=== PATIENT | male | born 1990 | race Caucasian/White ===

== ENCOUNTER 2016-10-15 | Emergency (ER) | payer OTHER ==
[2016-10-15] MEDS ORDERED: ONDANSETRON 4 MG ORAL DISINTEGRATING TAB (S0181) As Ordered ONE (01:54)
[2016-10-15] MEDS ORDERED: KETOROLAC 30 MG/ML VIAL (J1885) As Ordered ONE (01:55)
--- NOTE | 2016-10-15 02:53 | EDDOCDS ---
Nurse's Notes [facility] Name: Francisco Arizmendi Age: 26 yrs Sex: Male : 1990 Arrival Date: 10/15/2016 Time: 00:00 Bed I3 / M3 Private MD: Diagnosis: Fall due to ice and snow;Contusion of back wall of thorax;Concussion without loss of consciousness Presentation: 10/15 00:06 Presenting complaint: Patient states: Slipped on ice and fell injuring head and neck. [facility] Adult Sepsis Screening: The patient does not have new or worsening altered mentation. Patient's respiratory rate is less than 22. Systolic blood pressure is greater than 100. Patient has a qSOFA score of 0- Negative Sepsis Screen. Suicide/Homicide risk assessment- the patient denies having any suicidal and/or homicidal ideations and does not present with any other emotional, behavioral or mental health complaints. Status: The patient is an active duty social service technician. Transition of care: patient was not received from another setting of care. 00:06 Acuity: MARY BETH Level 4 [facility] 00:06 Method Of Arrival: Walkin/Carried/Asstd [facility] Triage Assessment: 00:09 General: Appears uncomfortable, Behavior is cooperative. Pain: Location: head and neck [facility] Pain currently is 7 out of 10 on a pain scale. HIV screening NA for this visit Offered previously. Neurological: Level of Consciousness is awake, alert, Oriented to person, place, time, Moves all extremities. Gait is steady, Speech is normal. Respiratory: Airway is patent Respiratory effort is even, unlabored. Derm: Skin is pink, warm & dry. Musculoskeletal: Circulation, motion, and sensation intact. Historical: - Allergies: MMR vaccine; orange juice; apple juice; lactose (bulk); - Home Meds: 1. melatonin 3 mg Oral tab nightly 2. Hydroxyzine 30mg Oral hs - PMHx: Pneumonia; - PSHx: left shoulder surgery; - Social history: Smoking status: Patient uses tobacco products, light tobacco smoker. No barriers to communication noted, The patient speaks fluent Italian. - Family history: Not pertinent. - : The pt / caregiver states he / she is not on anticoagulants. Home medication list is obtained from the patient. - Exposure Risk Screening:: None identified. Screenin:51 Screening information is obtained from the patient. Fall risk: No risks identified. cp1 Assistance ADL's: requires no assistance with activities of daily living. Abuse/DV Screen: The patient / caregiver reports he/she is: not in a situation that causes fear, pain or injury. Nutritional screening: No deficits noted. Advance Directives: Currently, there is no health care proxy. There is no active DNR order. home support is adequate. Vital Signs: 00:09 BP 161 / 91; Pulse 100; Resp 18; Temp 96.4(O); Pulse Ox 99% on R/A; Weight 68.04 kg; mcp Height 5 ft. 8 in. (172.72 cm); Pain 7/10; 02:32 BP 152 / 89 RA Sitting (auto/reg); Pulse 86 MON; Resp 20 S; Temp 97.8(O); Pulse Ox 96% cln on R/A; Pain 4/10; 00:09 Body Mass Index 22.81 (68.04 kg, 172.72 cm) [facility] Vitals: 00:09 Log In Time: October 15, 2016 at 00:00. [facility] ED Course: 00:01 Patient visited by Natacha Obrien. gjb 00:01 Patient moved to Waiting gjb 00:07 Triage Initiated mcp 00:11 Patient visited by Thelma Gonzalez RN. [facility] 00:11 The patient / caregiver is instructed regarding the plan of care and ED course. [facility] 00:11 Oksana cervical collar applied. mcp 00:35 Patient moved to MTA Wait cz 01:37 [facility] Zam[facility] cc[facility] 01:37 Osmany Aguirre DO is Attending Physician. cc10 01:37 Patient moved to I3 / M3 cz 01:38 Patient visited by Jacob Zamora PA-C. cc10 01:38 Patient visited by Jacob Zamora PA-C. cc10 02:35 Patient visited by Kaylene Fernández PCA. cln 02:51 No IV's were initiated during this patient's visit. No procedures done that require cp1 assistance. Administered Medications: 01:59 Drug: ketorolac 60 mg [ketorolac 30 mg/mL (1 mL) injection solution (2 mL)] Route: IM; cz Site: right gluteus; 02:50 Follow up: Response: Pain is decreased cp1 01:59 Drug: Ondansetron ODT 4 mg [ondansetron 4 mg disintegrating tablet (1 tabs)] Route: PO; cz 02:50 Follow up: Response: Nausea is decreased cp1 Order Results: There are currently no results for this order. Outcome: 02:31 Discharge ordered by Provider. cc10 02:51 Discharge Assessment: Patient awake, alert and oriented x 3. No cognitive and/or cp1 functional deficits noted. Patient verbalized understanding of disposition instructions. patient administered narcotics - no. The following High Risk Discharge criteria are identified: None. Condition: stable. Discharge instructions given to patient, Instructed on discharge instructions, follow up and referral plans. medication usage, no driving heavy equipment, Demonstrated understanding of instructions, medications, Pt was receptive of discharge instructions/ teaching. Prescriptions given X 2. No special radiology studies were completed. Property sent home with patient. :Personal belongings accompany Pt. 02:52 Patient left the ED. cp1 Signatures: Thelma Gonzalez RN Jerod Raza mcp, RN RN cz Perkins, Cheryl,HEALTH PLAN MANAGER HEALTH PLAN MANAGER cp1 Jacob Zamora, PETEC PA-Zara cc10 Natacha Obrien Crystal, JUNIOR SOCIAL MEDIA INTERN cln MTDD
--- NOTE | 2016-10-15 02:53 | EDDOCDS ---
Physician Documentation [facility] Name: Francisco Arizmendi Age: 26 yrs Sex: Male : 1990 Arrival Date: 10/15/2016 Time: 00:00 Bed I3 / M3 Private MD: Disposition: 10/15/16 02:31 Discharged to Home/Self Care. Impression: Fall due to ice and snow, Contusion of back wall of thorax, Concussion without loss of consciousness. - Condition is Stable. - Discharge Instructions: Concussion, Adult. - Prescriptions for Naprosyn 500 mg Oral Tablet - take 1 tablet by ORAL route 2 times per day take with food; 30 tablet. Cyclobenzaprine 10 mg Oral Tablet - take 1 tablet by ORAL route 3 times per day As needed; 15 tablet. - Medication Reconciliation, Local Pharmacy Hours form. - Follow up: Emergency Department; When: As needed; Reason: Worsening of conditions. Follow up: Private Physician; When: Call to arrange an appointment; Reason: Wound/Symptom Recheck, Recheck today's complaints, Worsening of conditions, Continuance of care. - Problem is new. - Symptoms have improved. Historical: - Allergies: MMR vaccine; orange juice; apple juice; lactose (bulk); - Home Meds: 1. melatonin 3 mg Oral tab nightly 2. Hydroxyzine 30mg Oral hs - PMHx: Pneumonia; - PSHx: left shoulder surgery; - Social history: Smoking status: Patient uses tobacco products, light tobacco smoker. No barriers to communication noted, The patient speaks fluent Marshallese. - Family history: Not pertinent. - : The pt / caregiver states he / she is not on anticoagulants. Home medication list is obtained from the patient. - Exposure Risk Screening:: None identified. Vital Signs: 10/15 00:09 BP 161 / 91; Pulse 100; Resp 18; Temp 96.4(O); Pulse Ox 99% on R/A; Weight 68.04 kg / mcp 150 lbs; Height 5 ft. 8 in. (172.72 cm); Pain 7/10; 02:32 BP 152 / 89 RA Sitting (auto/reg); Pulse 86 MON; Resp 20 S; Temp 97.8(O); Pulse Ox 96% cln on R/A; Pain 4/10; 00:09 Body Mass Index 22.81 (68.04 kg, 172.72 cm) [facility] MDM: 01:47 ketorolac 60 mg IM once ordered. cc10 01:47 Ondansetron ODT Oral Disintegrating Tablet 4 mg PO once ordered. cc10 01:47 Spine Cervical (XTL To Clear) Ordered. EDMS 01:48 Chest, 2 View (pa\E\lat) Ordered. EDMS Administered Medications: 01:59 Drug: ketorolac 60 mg [ketorolac 30 mg/mL (1 mL) injection solution (2 mL)] Route: IM; cz Site: right gluteus; 02:50 Follow up: Response: Pain is decreased cp1 01:59 Drug: Ondansetron ODT 4 mg [ondansetron 4 mg disintegrating tablet (1 tabs)] Route: PO; cz 02:50 Follow up: Response: Nausea is decreased cp1 Signatures: Dispatcher [employer] EDMS Thelma Gonzalez, RN RN Marianela Groves,HAND STONER HAND STONER cp1 Jacob Zamora, PA-C PA-C cc10 Jerod Lopes RN cz MTDD
--- NOTE | 2016-10-15 08:41 | REP ---
Chest x-ray: Two views. History: Trauma . Comparison study: No comparisons . Findings: The lungs are well inflated and free of infiltrate. The pleural angles are sharp. The heart size is normal. Pulmonary vasculature is not increased. No significant bony abnormality is seen. Impression: Negative chest x-ray. Signed by Alphonse Meadows MD 10/15/2016 08:33 A
--- NOTE | 2016-10-15 09:28 | REP ---
Cross-table lateral view of the cervical spine. Single view obtained. History: Trauma. Findings: A single cross-table lateral view of the cervical spine is presented. Cervical vertebral body heights are preserved on this view and alignment is normal. Disc spaces are maintained. No fracture or malalignment is seen. No soft tissue swelling is seen. CT scanning is the preferred imaging modality for trauma in adults and is more sensitive than plain radiography. Signed by Alphonse Meadows MD 10/15/2016 10:23 A
--- NOTE | 2016-10-17 12:25 | EDDOCDS ---
Physician Documentation [facility] Name: Francisco Arizmendi Age: 26 yrs Sex: Male : 1990 Arrival Date: 10/15/2016 Time: 00:00 Bed I3 / M3 Private MD: Disposition: 10/15/16 02:31 Discharged to Home/Self Care. Impression: Fall due to ice and snow, Contusion of back wall of thorax, Concussion without loss of consciousness. - Condition is Stable. - Discharge Instructions: Concussion, Adult. - Prescriptions for Naprosyn 500 mg Oral Tablet - take 1 tablet by ORAL route 2 times per day take with food; 30 tablet. Cyclobenzaprine 10 mg Oral Tablet - take 1 tablet by ORAL route 3 times per day As needed; 15 tablet. - Medication Reconciliation, Local Pharmacy Hours form. - Follow up: Emergency Department; When: As needed; Reason: Worsening of conditions. Follow up: Private Physician; When: Call to arrange an appointment; Reason: Wound/Symptom Recheck, Recheck today's complaints, Worsening of conditions, Continuance of care. - Problem is new. - Symptoms have improved. Historical: - Allergies: MMR vaccine; orange juice; apple juice; lactose (bulk); - Home Meds: 1. melatonin 3 mg Oral tab nightly 2. Hydroxyzine 30mg Oral hs - PMHx: Pneumonia; - PSHx: left shoulder surgery; - Social history: Smoking status: Patient uses tobacco products, light tobacco smoker. No barriers to communication noted, The patient speaks fluent Cymraes. - Family history: Not pertinent. - : The pt / caregiver states he / she is not on anticoagulants. Home medication list is obtained from the patient. - Exposure Risk Screening:: None identified. Vital Signs: 10/15 00:09 BP 161 / 91; Pulse 100; Resp 18; Temp 96.4(O); Pulse Ox 99% on R/A; Weight 68.04 kg / mcp 150 lbs; Height 5 ft. 8 in. (172.72 cm); Pain 7/10; 02:32 BP 152 / 89 RA Sitting (auto/reg); Pulse 86 MON; Resp 20 S; Temp 97.8(O); Pulse Ox 96% cln on R/A; Pain 4/10; 00:09 Body Mass Index 22.81 (68.04 kg, 172.72 cm) [facility] MDM: 01:47 ketorolac 60 mg IM once ordered. cc10 01:47 Ondansetron ODT Oral Disintegrating Tablet 4 mg PO once ordered. cc10 01:47 Spine Cervical (XTL To Clear) Ordered. EDMS 01:48 Chest, 2 View (pa\E\lat) Ordered. EDMS 02:54 [facility] Payment Agreement was scanned into [employer] and attached to record. [facility] 02:54 Financial registration complete. gjb 08:07 T-Sheet-- Draft Copy was scanned into [employer] and attached to record. se Administered Medications: 01:59 Drug: ketorolac 60 mg [ketorolac 30 mg/mL (1 mL) injection solution (2 mL)] Route: IM; cz Site: right gluteus; 02:50 Follow up: Response: Pain is decreased cp1 01:59 Drug: Ondansetron ODT 4 mg [ondansetron 4 mg disintegrating tablet (1 tabs)] Route: PO; cz 02:50 Follow up: Response: Nausea is decreased cp1 Signatures: Dispatcher [employer] EDAZ Thelma Gonzalez, RN RN Marianela Groves,OPERATIONS ASSOCIATE OPERATIONS ASSOCIATE cp1 Jacob Zamora, MAYELA PAJamie ccNatacha Baron Sarah seh Zecher, Calvin RN cz The chart was reviewed and I authenticate all verbal orders and agree with the evaluation and treatment provided.Attachments: 02:54 [facility] Payment Agreement gjb 08:07 T-Sheet-- Draft Copy [facility] Chart Complete MTDD
--- NOTE | 2016-10-17 12:25 | EDDOCDS ---
Nurse's Notes [facility] Name: Francisco Arizmendi Age: 26 yrs Sex: Male : 1990 Arrival Date: 10/15/2016 Time: 00:00 Bed I3 / M3 Private MD: Diagnosis: Fall due to ice and snow;Contusion of back wall of thorax;Concussion without loss of consciousness Presentation: 10/15 00:06 Presenting complaint: Patient states: Slipped on ice and fell injuring head and neck. [facility] Adult Sepsis Screening: The patient does not have new or worsening altered mentation. Patient's respiratory rate is less than 22. Systolic blood pressure is greater than 100. Patient has a qSOFA score of 0- Negative Sepsis Screen. Suicide/Homicide risk assessment- the patient denies having any suicidal and/or homicidal ideations and does not present with any other emotional, behavioral or mental health complaints. 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 Transition of care: patient was not received from another setting of care. 00:06 Acuity: MARY BETH Level 4 [facility] 00:06 Method Of Arrival: Walkin/Carried/Asstd [facility] Triage Assessment: 00:09 General: Appears uncomfortable, Behavior is cooperative. Pain: Location: head and neck [facility] Pain currently is 7 out of 10 on a pain scale. HIV screening NA for this visit Offered previously. Neurological: Level of Consciousness is awake, alert, Oriented to person, place, time, Moves all extremities. Gait is steady, Speech is normal. Respiratory: Airway is patent Respiratory effort is even, unlabored. Derm: Skin is pink, warm & dry. Musculoskeletal: Circulation, motion, and sensation intact. Historical: - Allergies: MMR vaccine; orange juice; apple juice; lactose (bulk); - Home Meds: 1. melatonin 3 mg Oral tab nightly 2. Hydroxyzine 30mg Oral hs - PMHx: Pneumonia; - PSHx: left shoulder surgery; - Social history: Smoking status: Patient uses tobacco products, light tobacco smoker. No barriers to communication noted, The patient speaks fluent Kyrgyz. - Family history: Not pertinent. - : The pt / caregiver states he / she is not on anticoagulants. Home medication list is obtained from the patient. - Exposure Risk Screening:: None identified. Screenin:51 Screening information is obtained from the patient. Fall risk: No risks identified. cp1 Assistance ADL's: requires no assistance with activities of daily living. Abuse/DV Screen: The patient / caregiver reports he/she is: not in a situation that causes fear, pain or injury. Nutritional screening: No deficits noted. Advance Directives: Currently, there is no health care proxy. There is no active DNR order. home support is adequate. Vital Signs: 00:09 BP 161 / 91; Pulse 100; Resp 18; Temp 96.4(O); Pulse Ox 99% on R/A; Weight 68.04 kg; mcp Height 5 ft. 8 in. (172.72 cm); Pain 7/10; 02:32 BP 152 / 89 RA Sitting (auto/reg); Pulse 86 MON; Resp 20 S; Temp 97.8(O); Pulse Ox 96% cln on R/A; Pain 4/10; 00:09 Body Mass Index 22.81 (68.04 kg, 172.72 cm) [facility] Vitals: 00:09 Log In Time: October 15, 2016 at 00:00. [facility] ED Course: 00:01 Patient visited by Natacha Obrien. gjb 00:01 Patient moved to Waiting gjb 00:07 Triage Initiated mcp 00:11 Patient visited by Thelma Gonzalez RN. [facility] 00:11 The patient / caregiver is instructed regarding the plan of care and ED course. mcp 00:11 Oksana cervical collar applied. mcp 00:35 Patient moved to MTA Wait cz 01:37 Jacob Zamora PA-C is PHCP. cc10 01:37 Osmany Aguirre DO is Attending Physician. cc10 01:37 Patient moved to I3 / M3 cz 01:38 Patient visited by Jacob Zamora PA-C. cc10 01:38 Patient visited by Jacob Zamora PA-C. cc10 02:35 Patient visited by Kaylene Fernández PCA. cln 02:51 No IV's were initiated during this patient's visit. No procedures done that require cp1 assistance. 02:54 [facility] Payment Agreement was scanned into [employer] and attached to record. gjb 08:07 T-Sheet-- Draft Copy was scanned into [employer] and attached to record. seh 08:49 Chest, 2 View (pa\E\lat) Returned. EDMS 09:44 Spine Cervical (XTL To Clear) Returned. EDMS Administered Medications: 01:59 Drug: ketorolac 60 mg [ketorolac 30 mg/mL (1 mL) injection solution (2 mL)] Route: IM; cz Site: right gluteus; 02:50 Follow up: Response: Pain is decreased cp1 01:59 Drug: Ondansetron ODT 4 mg [ondansetron 4 mg disintegrating tablet (1 tabs)] Route: PO; cz 02:50 Follow up: Response: Nausea is decreased cp1 Order Results: Radiology Order: Spine Cervical (XTL To Clear) Test: Spine Cervical (XTL To Clear) REASON FOR EXAMINATION: Trauma; Cross-table lateral view of the cervical spine. Single view obtained.; ; History: Trauma.; ; Findings: A single cross-table lateral view of the cervical spine is presented.; Cervical vertebral body heights are preserved on this view and alignment is; normal. Disc spaces are maintained. No fracture or malalignment is seen. No; soft tissue swelling is seen.; ; CT scanning is the preferred imaging modality for trauma in adults and is more; sensitive than plain radiography.; ; ; Signed by; Alphonse Meadows MD 10/15/2016 10:23 A; Radiology Order: Chest, 2 View (pa\E\lat) Test: Chest, 2 View (pa\E\lat) REASON FOR EXAMINATION: Trauma; Chest x-ray: Two views.; ; History: Trauma .; ; Comparison study: No comparisons .; ; Findings: The lungs are well inflated and free of infiltrate. The pleural; angles are sharp. The heart size is normal. Pulmonary vasculature is not; increased. No significant bony abnormality is seen.; ; Impression:; ; Negative chest x-ray.; ; ; Signed by; Alphonse Meadows MD 10/15/2016 08:33 A; Outcome: 02:31 Discharge ordered by Provider. cc10 02:51 Discharge Assessment: Patient awake, alert and oriented x 3. No cognitive and/or cp1 functional deficits noted. Patient verbalized understanding of disposition instructions. patient administered narcotics - no. The following High Risk Discharge criteria are identified: None. Condition: stable. Discharge instructions given to patient, Instructed on discharge instructions, follow up and referral plans. medication usage, no driving heavy equipment, Demonstrated understanding of instructions, medications, Pt was receptive of discharge instructions/ teaching. Prescriptions given X 2. No special radiology studies were completed. Property sent home with patient. :Personal belongings accompany Pt. 02:52 Patient left the ED. cp1 Signatures: Dispatcher [employer] Thelma Morrissey, RN RN Jerod Gibbons, HAYDEE RN Marianela Bartlett,CERTIFIED SOLID WASTE FACILITY OPERATOR CERTIFIED SOLID WASTE FACILITY OPERATOR cp1 Jacob Zamora, PA-C PA-C cc10 Natacha Obrien Crystal, PCA PCA cln Hoffert, Sarah seh Chart Complete MTDD
--- NOTE | 2016-10-17 12:25 | EDDOCDS ---
Physician Documentation [facility] Name: Francisco Arizmendi Age: 26 yrs Sex: Male : 1990 Arrival Date: 10/15/2016 Time: 00:00 Bed I3 / M3 Private MD: Disposition: 10/15/16 02:31 Discharged to Home/Self Care. Impression: Fall due to ice and snow, Contusion of back wall of thorax, Concussion without loss of consciousness. - Condition is Stable. - Discharge Instructions: Concussion, Adult. - Prescriptions for Naprosyn 500 mg Oral Tablet - take 1 tablet by ORAL route 2 times per day take with food; 30 tablet. Cyclobenzaprine 10 mg Oral Tablet - take 1 tablet by ORAL route 3 times per day As needed; 15 tablet. - Medication Reconciliation, Local Pharmacy Hours form. - Follow up: Emergency Department; When: As needed; Reason: Worsening of conditions. Follow up: Private Physician; When: Call to arrange an appointment; Reason: Wound/Symptom Recheck, Recheck today's complaints, Worsening of conditions, Continuance of care. - Problem is new. - Symptoms have improved. Historical: - Allergies: MMR vaccine; orange juice; apple juice; lactose (bulk); - Home Meds: 1. melatonin 3 mg Oral tab nightly 2. Hydroxyzine 30mg Oral hs - PMHx: Pneumonia; - PSHx: left shoulder surgery; - Social history: Smoking status: Patient uses tobacco products, light tobacco smoker. No barriers to communication noted, The patient speaks fluent Cape Verdean. - Family history: Not pertinent. - : The pt / caregiver states he / she is not on anticoagulants. Home medication list is obtained from the patient. - Exposure Risk Screening:: None identified. Vital Signs: 10/15 00:09 BP 161 / 91; Pulse 100; Resp 18; Temp 96.4(O); Pulse Ox 99% on R/A; Weight 68.04 kg / mcp 150 lbs; Height 5 ft. 8 in. (172.72 cm); Pain 7/10; 02:32 BP 152 / 89 RA Sitting (auto/reg); Pulse 86 MON; Resp 20 S; Temp 97.8(O); Pulse Ox 96% cln on R/A; Pain 4/10; 00:09 Body Mass Index 22.81 (68.04 kg, 172.72 cm) [facility] MDM: 01:47 ketorolac 60 mg IM once ordered. cc10 01:47 Ondansetron ODT Oral Disintegrating Tablet 4 mg PO once ordered. cc10 01:47 Spine Cervical (XTL To Clear) Ordered. EDMS 01:48 Chest, 2 View (pa\E\lat) Ordered. EDMS 02:54 [facility] Payment Agreement was scanned into [employer] and attached to record. [facility] 02:54 Financial registration complete. gjb 08:07 T-Sheet-- Draft Copy was scanned into [employer] and attached to record. se Administered Medications: 01:59 Drug: ketorolac 60 mg [ketorolac 30 mg/mL (1 mL) injection solution (2 mL)] Route: IM; cz Site: right gluteus; 02:50 Follow up: Response: Pain is decreased cp1 01:59 Drug: Ondansetron ODT 4 mg [ondansetron 4 mg disintegrating tablet (1 tabs)] Route: PO; cz 02:50 Follow up: Response: Nausea is decreased cp1 Signatures: Dispatcher [employer] EDNY Thelma Gonzalez, RN RN Marianela Groves,PEG DRIVER PEG DRIVER cp1 Jacob Zamora, MAYELA PAJamie ccNatacha Baron Sarah seh Zecher, Calvin RN cz The chart was reviewed and I authenticate all verbal orders and agree with the evaluation and treatment provided.Attachments: 02:54 [facility] Payment Agreement gjb 08:07 T-Sheet-- Draft Copy [facility] Chart Complete MTDD
== END 2016-10-15 02:52 | disposition home or self-care (01) ==
LOC: M ED
DX: S06.0X0A Concussion without loss of consciousness, initial encounter (principal); S20.229A Contusion of unspecified back wall of thorax, initial encounter; W00.0XXA Fall on same level due to ice and snow, initial encounter; Y92.019 Unspecified place in single-family (private) house as the place of occurrence of the external cause; Y93.01 Activity, walking, marching and hiking; Y99.8 Other external cause status; F17.210 Nicotine dependence, cigarettes, uncomplicated; Z79.899 Other long term (current) drug therapy; Z88.7 Allergy status to serum and vaccine; Z91.018 Allergy to other foods; Z91.011 Allergy to milk products
CPT/HCPCS: 71020; 72040; 96372; 99284; J1885